=== PATIENT | female | born 1970 | race Two or more races ===

== ENCOUNTER 2017-09-01 19:28 | Emergency (ER) | payer MEDICAID ==
[~2017-09-01] VITALS: Ht 157.5 cm; Wt 71.3 kg
[~2017-09-01 19:28] MED LIST: ACET-2119 PO; FURO-149 PO; LACT10SO PO; PANT40TA4 PO; RIFA550T PO; SIME125C43 PO; SPIR100T5 PO; ZIN220C PO
[2017-09-01 20:13] LABS: INR 1.2 INR; PROTHROMBIN TIME 12.2 SECONDS (9.0-12.0)
[2017-09-01 20:17] LABS: ALANINE AMINOTRANSFERASE 77 U/L (12-78); ALBUMIN 3.2 G/DL (3.4-5.0); ALBUMIN/GLOBULIN RATIO 0.8 (1.1-1.5); ALKALINE PHOSPHATASE 166 IU/L (46-116); ANION GAP 12 (8-16); ASPARTATE AMINO TRANSFERASE 93 U/L (10-37); BILIRUBIN,TOTAL 1.5 MG/DL (0.1-1.0); BLOOD UREA NITROGEN 16 MG/DL (7-18); CHLORIDE 103 MMOL/L (99-107); CREATININE 0.84 MG/DL (0.40-0.90); GLUCOSE 134 MG/DL (70-104); LIPASE 228 U/L (73-393); POTASSIUM 3.6 MMOL/L (3.5-5.1); SODIUM 135 MMOL/L (135-145); TOTAL CARBON DIOXIDE 20.2 MMOL/L (24-32); TOTAL PROTEIN 7.2 G/DL (6.4-8.2); eGFR 73 ML/MIN
[2017-09-01 20:23] LABS: BASOPHILS % (AUTO) 0 % (0-1); EOSINOPHILS % (AUTO) 0.6 % (0-6); HEMOGLOBIN 12.9 g/dl (12.0-16.0); LYMPHOCYTES # (AUTO) 0.1 X10'3 (1.1-4.8); LYMPHOCYTES % (AUTO) 3.1 % (21-51); MEAN CORPUSCULAR HEMOGLOBIN 29.2 PG (27.0-31.0); MONOCYTES # (AUTO) 0.2 X10'3 (0-0.9); MONOCYTES % (AUTO) 4.2 % (2-12); NEUTROPHILS # (AUTO) 4.1 X10'3 (1.8-7.7); NEUTROPHILS % (AUTO) 92.1 % (42-75); PLATELET COUNT 85 X10'3 (140-440); RED BLOOD COUNT 4.41 X10'6 (4.20-5.60); RED CELL DISTRIBUTION WIDTH 22.3 % (11.5-14.5); WHITE BLOOD COUNT 4.4 X10'3 (4.5-11.0)
[2017-09-01 20:29] LABS: URINE HCG NEGATIVE (NEG)
[2017-09-01 20:42] LABS: CLARITY,URINE SLIGHTLY CLOUDY (Clear); COLOR,URINE AMBER (Yellow); GLUCOSE, URINE NEGATIVE (Neg); KETONES,URINE TRACE mg/dl (Neg); LEUKOCYTE ESTERASE ,URINE NEGATIVE (Neg); NITRITES, URINE NEGATIVE (Neg); OCCULT BLOOD,URINE LARGE (Neg); PROTEIN,URINE 30 mg/dl (Neg); UROBILINOGEN,URINE 0.2 E.U/dL (0.2-1.0)
[2017-09-01 21:02] LABS: UA COLLECTION TYPE CLN CATCH MIDSTREAM
[2017-09-01 21:04] LABS: AMORPHOUS URATES 3+; SQUAMOUS EPITHELIAL CELL,UR FEW /LPF (FEW)
[2017-09-01 21:05] LABS: BACTERIA,URINE FEW /HPF (Neg)
[2017-09-01 21:06] LABS: WBC,URINE 0-4 /HPF (0-4)
[2017-09-01] MEDS ORDERED: morphine 4 MG/ML inj SYRINge IV ONE (22:45)
[2017-09-01] MEDS ORDERED: normal saline 1000ml 1,000 ML IV ONE (22:45)
[2017-09-01] MEDS ORDERED: ondansetron/PF 4mg/2ml inj IV ONE (22:45)
[2017-09-02] MEDS ORDERED: ONDA8TAB9 PO (01:18)
[2017-09-02 01:27] VITALS: BP 124/78
== END 2017-09-02 01:29 | disposition home or self-care (01) ==
LOC: ER 19:29
DX: R11.2 Nausea with vomiting, unspecified (principal); R10.9 Unspecified abdominal pain; Z79.899 Other long term (current) drug therapy
CPT/HCPCS: 36415; 74177; 80053; 81001; 81025; 83690; 85025; 85610; 96361; 96374; 96375; 99285; J2270; J2405; J7030

== ENCOUNTER 2017-12-28 10:33 | Day surgery (SDC) | payer MEDICAID ==
[~2017-12-28] VITALS: Ht 157.5 cm; Wt 68.2 kg
[~2017-12-28 10:33] MED LIST changes: +ONDA8TAB9 PO
[2017-12-28 10:40] VITALS: BP 137/73
[2017-12-28] MEDS ORDERED: MIDAZolam 5mg/5ml vial ONE (11:03)
[2017-12-28] MEDS ORDERED: fentaNYL/PF 50MCG/1 ML 2ML syringe ONE ×2 (11:03→13:22)
[2017-12-28 11:37] VITALS: BP 123/77
[2017-12-28 11:46] VITALS: BP 128/63
[2017-12-28 11:56] VITALS: BP 121/78
[2017-12-28 12:06] VITALS: BP 131/79
== END 2017-12-28 12:22 | disposition home or self-care (01) ==
LOC: GI LAB 10:33
PROVIDERS: ATTEND Internal Medicine Gastroenterology
DX: K62.1 Rectal polyp (principal); K57.30 Diverticulosis of large intestine without perforation or abscess without bleeding; K64.8 Other hemorrhoids; D50.0 Iron deficiency anemia secondary to blood loss (chronic); F10.21 Alcohol dependence, in remission; Z98.51 Tubal ligation status; Z79.891 Long term (current) use of opiate analgesic; Z79.899 Other long term (current) drug therapy; Z98.890 Other specified postprocedural states; Z83.71 Family history of colonic polyps; Z83.79 Family history of other diseases of the digestive system; Z83.3 Family history of diabetes mellitus
CPT/HCPCS: 45385; 99152; J2250; J3010; J7030; 99153; A4620

== ENCOUNTER 2018-02-01 07:48 | Day surgery (SDC) | payer MEDICAID ==
[~2018-02-01] VITALS: Ht 157.5 cm; Wt 63.6 kg
[~2018-02-01 07:48] MED LIST changes: -ONDA8TAB9 PO; -ZIN220C PO
[2018-02-01 07:59] VITALS: BP 127/94
[2018-02-01] MEDS ORDERED: FERR134T2 PO (08:05)
[2018-02-01] MEDS ORDERED: TRAZ-218 PO (08:07)
[2018-02-01] MEDS ORDERED: ZIN220C PO (08:07)
[2018-02-01] MEDS ORDERED: LIDOcaine Viscous 15ml cup ONE (08:08)
[2018-02-01] MEDS ORDERED: MIDAZolam 5mg/5ml vial ONE (08:08)
[2018-02-01] MEDS ORDERED: fentaNYL/PF 50MCG/1 ML 2ML syringe ONE (08:08)
[2018-02-01 08:51] VITALS: BP 115/76
[2018-02-01 09:01] VITALS: BP 115/74
[2018-02-01 09:11] VITALS: BP 120/70
== END 2018-02-01 09:38 | disposition home or self-care (01) ==
LOC: GI LAB 07:48
PROVIDERS: ATTEND Internal Medicine Gastroenterology
DX: I85.00 Esophageal varices without bleeding (principal); K76.6 Portal hypertension; K31.89 Other diseases of stomach and duodenum; K74.69 Other cirrhosis of liver; Z79.891 Long term (current) use of opiate analgesic; Z98.51 Tubal ligation status; Z98.890 Other specified postprocedural states; Z79.899 Other long term (current) drug therapy; Z84.89 Family history of other specified conditions; Z83.3 Family history of diabetes mellitus
CPT/HCPCS: 43235; J2250; J3010; J7030; 99152; A4620

== ENCOUNTER 2018-12-11 06:02 | Inpatient (IN) | payer MEDICAID ==
[~2018-12-11] VITALS: Ht 152.4 cm; Wt 68.2 kg
[~2018-12-11 06:02] MED LIST changes: -ACET-2119 PO; +FERR134T2 PO; -LACT10SO PO; -PANT40TA4 PO; +TRAZ-251 PO; +ZIN220C PO
[2018-12-11] MEDS ORDERED: ondansetron/PF 4mg/2ml inj IV ONE (06:25)
[2018-12-11] MEDS ORDERED: normal saline 1000ML IV soln IVB ONE (06:25)
--- NOTE | 2018-12-11 06:50 | NUR ---
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
[2018-12-11 06:53] LABS: URINE HCG NEGATIVE (NEG)
[2018-12-11 06:56] LABS: CLARITY,URINE CLEAR (Clear); COLOR,URINE YELLOW (Yellow); GLUCOSE, URINE NEGATIVE (Neg); KETONES,URINE NEGATIVE (Neg); LEUKOCYTE ESTERASE ,URINE NEGATIVE (Neg); NITRITES, URINE NEGATIVE (Neg); OCCULT BLOOD,URINE TRACE-LYSED (Neg); PH,URINE 6.5 (4.8-8.0); PROTEIN,URINE TRACE mg/dl (Neg)
[2018-12-11] MEDS: morphine 4 MG/ML inj SYRINge IV PRN ×3 (06:56→15:07)
--- NOTE | 2018-12-11 07:09 | NUR ---
pt returns from ct
[2018-12-11 07:11] LABS: BASOPHILS % (AUTO) 0.2 % (0-1); EOSINOPHILS % (AUTO) 0.7 % (0-6); HEMATOCRIT 40.3 % (35.0-45.0); HEMOGLOBIN 13.7 g/dl (12.0-16.0); LYMPHOCYTES # (AUTO) 0.3 X10'3 (1.1-4.8); LYMPHOCYTES % (AUTO) 4.7 % (21-51); MEAN CORPUSCULAR HEMOGLOBIN 31.3 PG (27.0-31.0); MEAN PLATELET VOLUME 8.5 FL (7.4-10.4); MONOCYTES # (AUTO) 0.3 X10'3 (0-0.9); MONOCYTES % (AUTO) 5.1 % (2-12); NEUTROPHILS % (AUTO) 89.3 % (42-75); PLATELET COUNT 88 X10'3 (140-440); RED BLOOD COUNT 4.38 X10'6 (4.20-5.60); RED CELL DISTRIBUTION WIDTH 14.3 % (11.5-14.5); WHITE BLOOD COUNT 5.6 X10'3 (4.5-11.0)
[2018-12-11 07:26] LABS: ALANINE AMINOTRANSFERASE 49 U/L (12-78); ALBUMIN 3.2 G/DL (3.4-5.0); ALBUMIN/GLOBULIN RATIO 0.9 (1.1-1.5); ANION GAP 10 (8-16); ASPARTATE AMINO TRANSFERASE 57 U/L (10-37); BILIRUBIN,TOTAL 1.9 MG/DL (0.1-1.0); BLOOD UREA NITROGEN 9 MG/DL (7-18); BUN/CREATININE RATIO 15.5 (6.6-38.0); CALCIUM 7.8 MG/DL (8.5-10.1); CHLORIDE 106 MMOL/L (99-107); CREATININE 0.58 MG/DL (0.40-0.90); GLUCOSE 102 MG/DL (70-104); POTASSIUM 3.4 MMOL/L (3.5-5.1); SODIUM 139 MMOL/L (135-145); TOTAL CARBON DIOXIDE 22.9 MMOL/L (24-32); TOTAL PROTEIN 6.7 G/DL (6.4-8.2); eGFR > 90 ML/MIN
[2018-12-11 07:27] LABS: UA COLLECTION TYPE CLN CATCH MIDSTREAM
[2018-12-11 07:27] LABS: ALKALINE PHOSPHATASE 138 IU/L (46-116); LIPASE 177 U/L (73-393)
[2018-12-11 07:30] LABS: BACTERIA,URINE 1+ /HPF (Neg); MUCUS STRANDS FEW /LPF (Neg); SQUAMOUS EPITHELIAL CELL,UR MODERATE /LPF (FEW); WBC,URINE 0-4 /HPF (0-4)
[2018-12-11 07:31] LABS: HYALINE CASTS 0-3 /LPF (NEGATIVE); YEAST FEW /HPF (NEGATIVE)
[2018-12-11 07:36] LABS: LARGE PLATELETS FEW; PLATELET ESTIMATE DECREASED
[2018-12-11] MEDS ORDERED: LACT10SO57 PO (09:47)
[2018-12-11] MEDS ORDERED: PANT40TA4 PO (09:47)
[2018-12-11] MEDS ORDERED: magnesium 2GM in 50ml NS 50 ML IV PRN (10:05)
[2018-12-11] MEDS ORDERED: ondansetron/PF 4mg/2ml inj IV PRN (10:05)
[2018-12-11] MEDS ORDERED: potassium Cl 20 mEq SR tablet PO PRN (10:05)
[2018-12-11] MEDS ORDERED: acetaminophen 325mg tablet PO PRN ×2 (10:05)
[2018-12-11] MEDS ORDERED: magnesium Cl slow-release 64mg tablet PO PRN (10:05)
[2018-12-11] MEDS ORDERED: docusate sod 100mg capsule PO PRN (10:05)
[2018-12-11] MEDS ORDERED: magnesium 4gm in 100ml NS 100 ML IV PRN (10:05)
[2018-12-11] MEDS ORDERED: potassium CL 10mEq/100ml bag 100 ML IV PRN ×2 (10:05)
[2018-12-11] MEDS ORDERED: morphine 2 MG/ML inj. syringe IV PRN (10:05)
[2018-12-11] MEDS: normal saline 1000ml 1,000 ML IV SCH ×2 (10:23→20:52)
--- NOTE | 2018-12-11 15:01 | NUR ---
NEVA GARCIA TO LET HER KNOW THAT PT. WILL NOT BE ABLE TO GO TO [facility] TODAY, BUT WILL AHVE TO WAIT UNTIL AM DUE TO A MEDICATION NEEDED FOR THE SCAN NOT BEING IN STOCK. NOTE WRITTEN BY NUC. MED.UNDER "OTHER" NOTES: No dose available, unable to do HIDA scan today, will order a dose for tomorrow. Ideally would like the patient to eat something tonight, and will do the HIDA in the morning. Nuclear Medicine 5110 MD PLACED PT. ON CL DIET FOR DINNER. WILL CONT. TO MONITOR PT. ON MY SHIFT.
[2018-12-11] MEDS: potassium Cl 20 mEq SR tablet PO PRN ×2 (15:07→21:01)
[2018-12-11] MEDS: metroNIDAZOLE-Flagyl 500mg/NS 100 ML IV SCH ×2 (17:19→23:59)
[2018-12-11 19:00] VITALS: BP 161/95
--- NOTE | 2018-12-11 19:42 | NUR ---
PT. IN ROOM, PAINFUL, ONCOMING RN AWARE THAT PT. ADMISSION DARTING, SWAB, SKIN CHECK AND MED REQ HAVE NOT BEEN COMPLETED AT THIS TIME DUE TO CARE OF OTHER PATIENTS. PT HAS 2 MORE POTASSIUM REPLACEMENT DOSES DUE. AWAITING CL TRAY FROM KITCHEN. Problems reprioritized. Patient report given, questions answered & plan of care reviewed with GARDENIA NOONAN.
[2018-12-11] MEDS ORDERED: heparin, porcine 5000 units/ml vial SQ SCH (20:00)
[2018-12-11] MEDS ORDERED: LACTULOSE PO SCH (20:00)
[2018-12-11] MEDS: rifaximin 550mg tablet PO SCH (20:52)
[2018-12-11] MEDS: ciprofloxacin lact 400MG/200ML 200 ML IV SCH (20:52)
[2018-12-11] MEDS: lactulose 20gm/30ml cup PO SCH (20:52)
[2018-12-11] MEDS ORDERED: temazepam 15mg capsule PO PRN (21:00)
[2018-12-11] MEDS: HYDROcodone/acetaminophen 5mg/325mg tablet PO PRN (21:01)
[2018-12-12] VITALS: BP 140/83
[2018-12-12] MEDS: morphine 4 MG/ML inj SYRINge IV PRN (00:02)
[2018-12-12] MEDS: normal saline 1000ml 1,000 ML IV SCH (05:57)
[2018-12-12 06:13] LABS: HEMOGLOBIN 12.6 g/dl (12.0-16.0); LYMPHOCYTES # (AUTO) 0.4 X10'3 (1.1-4.8); MEAN CORPUSCULAR HEMOGLOBIN 31.3 PG (27.0-31.0); MONOCYTES # (AUTO) 0.3 X10'3 (0-0.9); NEUTROPHILS # (AUTO) 1.9 X10'3 (1.8-7.7); WHITE BLOOD COUNT 2.6 X10'3 (4.5-11.0)
[2018-12-12 06:17] LABS: BASOPHILS % (AUTO) 0.3 % (0-1); EOSINOPHILS % (AUTO) 0.7 % (0-6); HEMATOCRIT 36.6 % (35.0-45.0); LYMPHOCYTES % (AUTO) 16.5 % (21-51); MEAN CORPUSCULAR HGB CONC 34.3 g/dL (33.0-36.5); MEAN CORPUSCULAR VOLUME 91.3 FL (78-98); MEAN PLATELET VOLUME 8.3 FL (7.4-10.4); MONOCYTES % (AUTO) 11.5 % (2-12); PLATELET COUNT 69 X10'3 (140-440); RED CELL DISTRIBUTION WIDTH 13.9 % (11.5-14.5)
--- NOTE | 2018-12-12 06:20 | NUR ---
Patient in room [facility]. I have received report from SHAISTA Ugalde and had the opportunity to ask questions and assume patient care.
[2018-12-12 06:27] LABS: ALANINE AMINOTRANSFERASE 37 U/L (12-78); ALBUMIN 2.4 G/DL (3.4-5.0); ALBUMIN/GLOBULIN RATIO 0.8 (1.1-1.5); ALKALINE PHOSPHATASE 88 IU/L (46-116); ANION GAP 10 (8-16); ASPARTATE AMINO TRANSFERASE 41 U/L (10-37); BILIRUBIN,TOTAL 1.2 MG/DL (0.1-1.0); BLOOD UREA NITROGEN 6 MG/DL (7-18); CHLORIDE 105 MMOL/L (99-107); GLUCOSE 77 MG/DL (70-104); MAGNESIUM 1.4 MG/DL (1.5-2.4); POTASSIUM 3.4 MMOL/L (3.5-5.1); SODIUM 137 MMOL/L (135-145); TOTAL CARBON DIOXIDE 22.3 MMOL/L (24-32); TOTAL PROTEIN 5.5 G/DL (6.4-8.2); eGFR > 90 ML/MIN
[2018-12-12 06:30] VITALS: BP 139/88
[2018-12-12 07:05] LABS: TOTAL CELLS COUNTED 100
[2018-12-12 07:06] LABS: LARGE PLATELETS FEW; PLATELET ESTIMATE DECREASED
[2018-12-12] MEDS: metroNIDAZOLE-Flagyl 500mg/NS 100 ML IV SCH (07:36)
[2018-12-12] MEDS: lactulose 20gm/30ml cup PO SCH (07:37)
[2018-12-12] MEDS: rifaximin 550mg tablet PO SCH (07:37)
[2018-12-12] MEDS: potassium Cl 20 mEq SR tablet PO PRN ×3 (07:37→15:13)
[2018-12-12] MEDS ORDERED: furosemide 20MG tablet PO SCH (08:00)
[2018-12-12] MEDS ORDERED: pantoprazole 40mg Tablet.DR PO SCH (08:00)
[2018-12-12] MEDS ORDERED: K and/or MAG REPLACEMENT MC SCH (08:00)
--- NOTE | 2018-12-12 08:49 | NUR ---
Pt off the floor to nuclear medicine for HIDA scan
[2018-12-12] MEDS: HYDROcodone/acetaminophen 5mg/325mg tablet PO PRN (10:50)
[2018-12-12] MEDS: ciprofloxacin lact 400MG/200ML 200 ML IV SCH (10:51)
[2018-12-12 11:00] VITALS: BP 137/87
[2018-12-12] MEDS ORDERED: PANT40TA4 PO (14:25)
[2018-12-12] MEDS ORDERED: TRAM50TA2 PO (14:25)
--- NOTE | 2018-12-12 15:55 | NUR ---
DC inst provided to pt & sister. IV DC'd, tip intact. All belongings sent w/pt. RN ambulated w/pt to front lobby.
== END 2018-12-12 15:55 | disposition home or self-care (01) | DRG 282 ==
LOC: ER 06:02 → SUR 3N 11:30
PROVIDERS: ADMIT Internal Medicine; ATTEND Family Medicine
PROC: CW101ZZ Planar Nuclear Medicine Imaging of Abdomen using Technetium 99m (Tc-99m) (ICD-10-PCS; principal; 2018-12-12)
DX: K85.90 Acute pancreatitis without necrosis or infection, unspecified (principal); D69.6 Thrombocytopenia, unspecified; K72.90 Hepatic failure, unspecified without coma; K74.60 Unspecified cirrhosis of liver; E87.6 Hypokalemia; Z98.891 History of uterine scar from previous surgery; Z98.51 Tubal ligation status; Z83.3 Family history of diabetes mellitus; Z84.89 Family history of other specified conditions
CPT/HCPCS: 36415; 74176; 76700; 78226; 80053; 81001; 81025; 82140; 83605; 83690; 83735; 85025; 87040; 87081; 96361; 96374; 97116; 97161; 99285; A9537; G0378; J0744; J2270; J2405; J3490; J7030

== ENCOUNTER 2019-03-07 09:29 | Day surgery (SDC) | payer MEDICAID ==
[~2019-03-07] VITALS: Ht 157.5 cm; Wt 69.1 kg
[~2019-03-07 09:29] MED LIST changes: -FERR134T2 PO; +LACT10SO57 PO; +PANT40TA4 PO; -SIME125C43 PO; -SPIR100T5 PO; -TRAZ-251 PO; -ZIN220C PO
[2019-03-07 09:40] VITALS: BP 140/95
[2019-03-07] MEDS ORDERED: SPIR25TA5 PO (10:01)
[2019-03-07] MEDS ORDERED: FURO-149 PO (10:02)
[2019-03-07] MEDS ORDERED: SIME62.5 PO (10:02)
[2019-03-07] MEDS ORDERED: LACT10SO PO (10:03)
[2019-03-07] MEDS ORDERED: MIDAZolam 5mg/5ml vial ONE (10:03)
[2019-03-07] MEDS ORDERED: LIDOcaine Viscous 15ml cup ONE (10:03)
[2019-03-07] MEDS ORDERED: fentaNYL/PF 50MCG/1 ML 2ML syringe ONE (10:03)
[2019-03-07] MEDS ORDERED: PANT40TA4 PO (10:04)
[2019-03-07] MEDS ORDERED: RIFA550T PO (10:04)
[2019-03-07 11:36] VITALS: BP 133/75
[2019-03-07 11:45] VITALS: BP 120/73
[2019-03-07 11:55] VITALS: BP 122/72
[2019-03-07 12:05] VITALS: BP 117/75
== END 2019-03-07 12:30 | disposition home or self-care (01) ==
LOC: GI LAB 09:29
PROVIDERS: ATTEND Internal Medicine Gastroenterology
DX: I85.00 Esophageal varices without bleeding (principal); K76.6 Portal hypertension; K31.89 Other diseases of stomach and duodenum; K29.60 Other gastritis without bleeding
CPT/HCPCS: 43239; 99152; J2250; J3010; J7040; 99153; A4620

== ENCOUNTER 2019-04-10 22:50 | Emergency (ER) | payer MEDICAID ==
[~2019-04-10] VITALS: Ht 154.9 cm; Wt 68.2 kg
[~2019-04-10 22:50] MED LIST changes: +LACT10SO PO; -LACT10SO57 PO; +SIME62.5 PO; +SPIR25TA5 PO
[2019-04-11 00:44] VITALS: BP 119/72
[2019-04-11] MEDS: diphenhydrAMINE 50 mg/ml inj IV ONE (00:52)
[2019-04-11] MEDS: ketorolac trometh. 30mg/ml inj. IV ONE (00:52)
[2019-04-11] MEDS: metoclopramide 5 mg/ml inj IV ONE (00:53)
== END 2019-04-11 01:30 | disposition home or self-care (01) ==
LOC: ER 22:50
DX: R51 Headache (principal); M54.2 Cervicalgia; H53.149 Visual discomfort, unspecified; Z98.890 Other specified postprocedural states; Z98.51 Tubal ligation status; Z79.899 Other long term (current) drug therapy
CPT/HCPCS: 70450; 96374; 96375; 99284; J1200; J1885; J2765

== ENCOUNTER 2020-06-07 09:05 | Day surgery (SDC) | payer MEDICAID ==
[~2020-06-07] VITALS: Ht 160 cm; Wt 70.9 kg
[2020-06-07] VITALS (8 sets, daily range): BP systolic 142–147; BP diastolic 89–108
[~2020-06-07 09:05] MED LIST changes: -LACT10SO PO; +LACT10SO3 PO; -PANT40TA4 PO; +PANT40TA54 PO
[2020-06-07] MEDS ORDERED: MIDAZolam 1 MG/ML 5ML VIAL ONE (10:22)
[2020-06-07] MEDS ORDERED: fentaNYL/PF 50MCG/1 ML 2ML syringe ONE (10:22)
[2020-06-07] MEDS ORDERED: LIDOcaine Viscous 15ml cup ONE (10:22)
== END 2020-06-07 12:03 | disposition home or self-care (01) ==
LOC: GI LAB 09:05
PROVIDERS: ATTEND Internal Medicine Gastroenterology
DX: I85.00 Esophageal varices without bleeding (principal); K76.6 Portal hypertension; K31.89 Other diseases of stomach and duodenum
CPT/HCPCS: 43244; J2250; J3010; J7040; 99152; A4620

== ENCOUNTER 2020-09-30 23:25 | Emergency (ER) | payer MEDICAID ==
[~2020-09-30] VITALS: Ht 160 cm; Wt 80.0 kg
[~2020-09-30 23:25] MED LIST changes: -SIME62.5 PO
[2020-10-01] MEDS ORDERED: metoclopramide 5 mg/ml inj IV ONE
[2020-10-01] MEDS ORDERED: diphenhydrAMINE 50 mg/ml inj IV ONE
[2020-10-01] MEDS ORDERED: normal saline 1000ML IV soln IVB ONE ×2
[2020-10-01 00:43] LABS: BASOPHILS % (AUTO) 0.3 % (0-1); EOSINOPHILS % (AUTO) 0.3 % (0-6); HEMATOCRIT 43.6 % (35.0-45.0); HEMOGLOBIN 15.3 g/dl (12.0-16.0); LYMPHOCYTES # (AUTO) 0.6 X10'3 (1.1-4.8); LYMPHOCYTES % (AUTO) 13.6 % (21-51); MEAN CORPUSCULAR HEMOGLOBIN 31.4 PG (27.0-31.0); MEAN CORPUSCULAR VOLUME 89.8 FL (78-98); MEAN PLATELET VOLUME 8.3 FL (7.4-10.4); MONOCYTES # (AUTO) 0.6 X10'3 (0-0.9); MONOCYTES % (AUTO) 12.3 % (2-12); NEUTROPHILS # (AUTO) 3.3 X10'3 (1.8-7.7); NEUTROPHILS % (AUTO) 73.5 % (42-75); PLATELET COUNT 113 X10'3 (140-440); RED BLOOD COUNT 4.86 X10'6 (4.20-5.60); RED CELL DISTRIBUTION WIDTH 14.2 % (11.5-14.5); WHITE BLOOD COUNT 4.6 X10'3 (4.5-11.0)
[2020-10-01 01:55] LABS: CLARITY,URINE CLEAR (Clear); COLOR,URINE YELLOW (Yellow); GLUCOSE, URINE NEGATIVE (Neg); KETONES,URINE TRACE mg/dl (Neg); LEUKOCYTE ESTERASE ,URINE NEGATIVE (Neg); NITRITES, URINE NEGATIVE (Neg); OCCULT BLOOD,URINE LARGE (Neg); PH,URINE 5.5 (4.8-8.0); PROTEIN,URINE TRACE mg/dl (Neg); UROBILINOGEN,URINE 0.2 E.U/dL (0.2-1.0)
[2020-10-01 02:08] LABS: UA COLLECTION TYPE CLN CATCH MIDSTREAM
[2020-10-01 02:09] LABS: BACTERIA,URINE FEW /HPF (Neg); MUCUS STRANDS FEW /LPF (Neg); RBC,URINE 20-50 /HPF (0-2); SQUAMOUS EPITHELIAL CELL,UR FEW /LPF (FEW); WBC,URINE 0-4 /HPF (0-4)
[2020-10-01 02:51] LABS: ALANINE AMINOTRANSFERASE 65 U/L (12-78); ALBUMIN 3.3 G/DL (3.4-5.0); ALBUMIN/GLOBULIN RATIO 0.8 (1.1-1.5); ALKALINE PHOSPHATASE 185 IU/L (46-116); ANION GAP 13 (8-16); ASPARTATE AMINO TRANSFERASE 87 U/L (10-37); BILIRUBIN,TOTAL 0.9 MG/DL (0.1-1.0); BLOOD UREA NITROGEN 10 MG/DL (7-18); BUN/CREATININE RATIO 13.5 (6.6-38.0); CHLORIDE 103 MMOL/L (99-107); CREATININE 0.74 MG/DL (0.40-0.90); GLUCOSE 99 MG/DL (70-104); POTASSIUM 3.8 MMOL/L (3.5-5.1); SODIUM 136 MMOL/L (135-145); TOTAL CARBON DIOXIDE 20.3 MMOL/L (24-32); TOTAL PROTEIN 7.3 G/DL (6.4-8.2); eGFR 84 ML/MIN
[2020-10-01] MEDS ORDERED: ONDA4TAB12 PO (03:08)
--- NOTE | 2020-10-01 03:43 | NUR ---
pt ready for discharge, but tachypneic. notified, to order ct scan. pt's temp 99.7
[2020-10-01] MEDS ORDERED: azithromycin/NS 500mg/250ml 250 ML IV ONE (04:35)
--- NOTE | 2020-10-01 05:03 | NUR ---
Son Fritz: [phone] - call him when ready for discharge, will cone picker patient.
[2020-10-01 05:10] VITALS: BP 119/71
[2020-10-01] MEDS ORDERED: AZIT-63 PO (05:53)
--- NOTE | 2020-10-01 06:11 | NUR ---
Son Fritz called to come greens picker mom, no answer, left voicemail to come greens picker and d/c instructions.
== END 2020-10-01 06:55 | disposition home or self-care (01) ==
LOC: ER 23:25
DX: R10.84 Generalized abdominal pain (principal); Z20.822 Contact with and (suspected) exposure to COVID-19; R11.2 Nausea with vomiting, unspecified; R50.9 Fever, unspecified; R19.7 Diarrhea, unspecified; Z98.51 Tubal ligation status; Z98.890 Other specified postprocedural states; Z72.89 Other problems related to lifestyle; Z79.899 Other long term (current) drug therapy
CPT/HCPCS: 36415; 71045; 71250; 74176; 80053; 81001; 83605; 84145; 85025; 87040; 87635; 93005; 96361; 96365; 96375; 99285; C9803; J0456; J1200; J2765; J7030

== ENCOUNTER 2021-07-15 08:29 | Day surgery (SDC) | payer MEDICAID ==
[~2021-07-15] VITALS: Ht 157.5 cm; Wt 72.3 kg
[~2021-07-15 08:29] MED LIST changes: +ONDA4TAB12 PO
[2021-07-15 08:42] VITALS: BP 131/93
[2021-07-15] MEDS ORDERED: SPIR100T5 PO (08:45)
[2021-07-15] MEDS ORDERED: SIME62.5 PO (08:45)
[2021-07-15] MEDS ORDERED: LIDOcaine Viscous 15ml cup ONE (09:07)
[2021-07-15] MEDS ORDERED: MIDAZolam 1 MG/ML 5ML VIAL ONE (09:07)
[2021-07-15] MEDS ORDERED: fentaNYL/PF 50MCG/1 ML 2ML syringe ONE (09:07)
[2021-07-15 09:58] VITALS: BP 121/74
[2021-07-15 10:08] VITALS: BP 119/68
[2021-07-15 10:18] VITALS: BP 122/73
[2021-07-15 10:28] VITALS: BP 122/72
== END 2021-07-15 10:40 | disposition home or self-care (01) ==
LOC: GI LAB 08:29
PROVIDERS: ATTEND Internal Medicine Gastroenterology
DX: R12 Heartburn (principal); I85.00 Esophageal varices without bleeding; K29.50 Unspecified chronic gastritis without bleeding; I10 Essential (primary) hypertension; Z79.899 Other long term (current) drug therapy
CPT/HCPCS: 43239; 99152; J2250; J3010; J7030; Z7512; A4620

== ENCOUNTER 2022-05-29 02:26 | Emergency (ER) | payer MEDICAID ==
[~2022-05-29] VITALS: Ht 152.4 cm; Wt 81.8 kg
[~2022-05-29 02:26] MED LIST changes: -LACT10SO3 PO; -ONDA4TAB12 PO; -PANT40TA54 PO; +SIME62.5 PO; +SPIR100T5 PO; -SPIR25TA5 PO
[2022-05-29] MEDS ORDERED: pantoprazole 40mg Tablet.DR PO ONE (02:45)
[2022-05-29] MEDS ORDERED: ondansetron 4mg rapidly disintigrating tab PO ONE (02:45)
[2022-05-29] MEDS ORDERED: LIDOcaine Viscous 15ml cup MM ONE (02:45)
[2022-05-29] MEDS ORDERED: mag hydrox/Alum hydrox/simeth 30ml oral suspension PO ONE (02:45)
[2022-05-29] MEDS ORDERED: famotidine 20mg tablet PO ONE (02:45)
[2022-05-29 02:58] LABS: BASOPHILS % (AUTO) 0.8 % (0-1); EOSINOPHILS # (AUTO) 0.1 X10'3 (0-0.9); EOSINOPHILS % (AUTO) 3.8 % (0-6); HEMATOCRIT 50.3 % (35.0-45.0); HEMOGLOBIN 17.1 g/dl (12.0-16.0); LYMPHOCYTES # (AUTO) 0.9 X10'3 (1.1-4.8); LYMPHOCYTES % (AUTO) 29.2 % (21-51); MEAN PLATELET VOLUME 9.4 FL (7.4-10.4); MONOCYTES # (AUTO) 0.7 X10'3 (0-0.9); MONOCYTES % (AUTO) 21.1 % (2-12); NEUTROPHILS # (AUTO) 1.4 X10'3 (1.8-7.7); NEUTROPHILS % (AUTO) 45.1 % (42-75); PLATELET COUNT 82 X10'3 (140-440); RED BLOOD COUNT 5.19 X10'6 (4.20-5.60); RED CELL DISTRIBUTION WIDTH 14.1 % (11.5-14.5); WHITE BLOOD COUNT 3.1 X10'3 (4.5-11.0)
[2022-05-29 03:19] LABS: ALANINE AMINOTRANSFERASE 68 U/L (12-78); ALBUMIN 3.3 G/DL (3.4-5.0); ALBUMIN/GLOBULIN RATIO 0.8 (1.1-1.5); ALKALINE PHOSPHATASE 216 IU/L (46-116); ANION GAP 10 (8-16); ASPARTATE AMINO TRANSFERASE 90 U/L (10-37); BLOOD UREA NITROGEN 8 MG/DL (7-18); BUN/CREATININE RATIO 15.4 (6.6-38.0); CHLORIDE 109 MMOL/L (99-107); CREATININE 0.52 MG/DL (0.40-0.90); GLUCOSE 111 MG/DL (70-104); SODIUM 140 MMOL/L (135-145); TOTAL CARBON DIOXIDE 21.1 MMOL/L (24-32); TOTAL PROTEIN 7.3 G/DL (6.4-8.2); eGFR > 90 ML/MIN
[2022-05-29 03:21] LABS: POTASSIUM 3.9 MMOL/L (3.5-5.1)
[2022-05-29 03:29] LABS: PLATELET ESTIMATE DECREASED; TOTAL CELLS COUNTED 100
[2022-05-29] MEDS ORDERED: normal saline 1000ml 1,000 ML IV ONE (04:00)
--- NOTE | 2022-05-29 04:45 | NUR ---
Patient reports minimal improvement in pain, provider notfied, advised will wait for delta Trop. Delta trop drawn and sent at this time.
[2022-05-29] MEDS ORDERED: PANT-47 PO (05:16)
[2022-05-29 05:23] VITALS: BP 126/88
== END 2022-05-29 05:26 | disposition home or self-care (01) ==
LOC: ER 02:27
DX: R07.9 Chest pain, unspecified (principal); R10.9 Unspecified abdominal pain; Z98.890 Other specified postprocedural states; Z90.49 Acquired absence of other specified parts of digestive tract
CPT/HCPCS: 36415; 71045; 80053; 83735; 83880; 84484; 85007; 85025; 93005; 96360; 99285; J7030

== ENCOUNTER 2023-12-22 16:54 | Emergency (ER) | payer MEDICAID ==
[~2023-12-22] VITALS: Ht 157.5 cm; Wt 72.0 kg
[~2023-12-22 16:54] MED LIST changes: +PANT-47 PO
[2023-12-22 16:56] VITALS: TEMP 99.4
[2023-12-22] MEDS: ondansetron 4mg rapidly disintigrating tab PO ONE (18:10)
[2023-12-22] MEDS: morphine 4 MG/ML inj SYRINge IM ONE (18:10)
[2023-12-22] MEDS ORDERED: HYDR-3965 PO (18:50)
[2023-12-22] MEDS: HYDROmorphone 1 mg/ml syringe IM ONE (19:27)
[2023-12-22 21:07] VITALS: BP 145/82; PULSE 81; RESP 16; O2SAT 92
== END 2023-12-22 21:03 | disposition home or self-care (01) ==
LOC: ER 16:54
DX: S00.83XA Contusion of other part of head, initial encounter (principal); M25.511 Pain in right shoulder; Z79.899 Other long term (current) drug therapy; Z98.890 Other specified postprocedural states; Z98.51 Tubal ligation status; W19.XXXA Unspecified fall, initial encounter; Y93.89 Activity, other specified; Y92.89 Other specified places as the place of occurrence of the external cause; Y99.8 Other external cause status
CPT/HCPCS: 70486; 72125; 72128; 73010; 73030; 96372; 99285; J1170; J2270